=== PATIENT | female | born 1945 | race Caucasian/White ===

== ENCOUNTER → 2017-02-15 | Outpatient (CLI) | payer MEDICARE ==
--- NOTE | ~2017-02-15 | US10 ---
[id number] [facility] [address] [place], [place] [address] [id number] O MR#: [id number] Acc #: [id number] NAME: CARLOS ALBERTO SOLIS : 1945 SEX: F STUDY DATE/TIME: 02/15/2017 10:06 UNIT: [facility] ROOM: STUDY DESCRIPTION: US Aorta Complete Attending Physician: Beronica Luis A.P.R.N. Referring Physician: Beronica Luis A.P.R.N. Ordering Physician: Beronica Luis A.P.R.N. Primary Care Physician: Tesha Pinto M.D. MEDICAL IMAGING REPORT This report is preliminary unless electronic signature is present EXAM Abdominal aortic duplex 02/15/2017 HISTORY Abdominal aortic aneurysm. FINDINGS Duplex imaging of the abdominal aorta was performed. The proximal aorta is patent. It measures 25 mm in diameter maximally. Mid abdominal aorta measures 3.3 cm in diameter. Distally the abdominal aorta measures 3.2 x 2.4 cm. Right and left iliac arteries are non-aneurysmal and measure 1.3 cm on the right side and 9 mm in the left side. Small abdominal aorta in the mid and distal portion with a maximal diameter of 3.3 cm is seen. Dictated by... Bo Combs M.D. THIS IS AN ELECTRONICALLY VERIFIED REPORT Bo Combs M.D. at 02/16/2017 9:44 AM Marycruz TD: 02/15/2017 18:08 JOB #: [id number] MEDICAL IMAGING REPORT Page 1 of 1 COPY
== END | disposition home or self-care (01) ==
LOC: CGUS 09:51
DX: I71.4 Abdominal aortic aneurysm, without rupture (principal)
CPT/HCPCS: 76770